=== PATIENT | female | born 1995 | race Caucasian/White ===

== ENCOUNTER 2018-01-21 21:19 | Emergency (ER) | payer SELFPAY ==
--- NOTE | 2018-01-21 21:32 | UC ---
Dizzy HPI HPI Summary: fainted this evening about 2 hours ago---episode was brief---patient felt it coming on with darkening of vision and loss of hearing, and sensation of SOB while sitting down ---she stood up then fainted, her SO believes it was for only a second or 2 and she had begun to arouse before he could grab her arm and cheek her pulse. Patient had eaten when this event happened[place] - History Of Current Complaint Chief Complaint: UCDizziness Stated Complaint: FAINTED Time Seen by Provider: 01/21/18 21:29 Hx Obtained From: Patient ?: No Onset/Duration: Sudden Onset, Lasting Minutes Timing: Constant Pain Intensity: 0 Pain Scale Used: 0-10 Numeric Character: Lightheaded Aggravating Factor(s): Nothing Alleviating Factor(s): Rest Associated Signs And Symptoms: Positive: SOB, Visual Changes - Allergies/Home Medications Allergies/Adverse Reactions: Allergies Allergy/AdvReac Type Severity Reaction Status Date / Time No Known Allergies Allergy Verified 01/21/18 22:59 Home Medications: Home Medications Levonorgestrel (Iud) [Mirena IUD] 1 insert VAGINAL ONCE 01/21/18 [History] PMH/Surg Hx/FS Hx/Imm Hx Previously Healthy: Yes - Family History Known Family History: Positive: Cardiac Disease, Diabetes - Social History Occupation: Employed Full-time, Student Lives: With Family Alcohol Use: None Substance Use Type: None Smoking Status (MU): Never Smoked Tobacco Review of Systems Constitutional: Negative Skin: Negative Eyes: Negative ENT: Negative Respiratory: Shortness Of Breath Cardiovascular: Negative Gastrointestinal: Negative Genitourinary: Negative Motor: Negative Neurovascular: Negative Musculoskeletal: Negative Neurological: Negative Psychological: Negative Is Patient Immunocompromised?: No All Other Systems Reviewed And Are Negative: Yes Physical Exam Triage Information Reviewed: Yes Appearance: Well-Appearing, No Pain Distress, Well-Nourished Vital Signs Reviewed: Yes Eye Exam: Normal Eyes: Positive: Conjunctiva Clear ENT Exam: Normal ENT: Positive: Normal ENT inspection, Hearing grossly normal, Pharynx normal, TMs normal, Uvula midline. Negative: Nasal congestion, Trismus, Muffled voice, Hoarse voice, Sinus tenderness Dental Exam: Normal Neck exam: Normal Neck: Positive: Supple, Nontender, No Lymphadenopathy Respiratory Exam: Normal Respiratory: Positive: Chest non-tender, Lungs clear, Normal breath sounds, No respiratory distress, No accessory muscle use Cardiovascular Exam: Normal Cardiovascular: Positive: RRR, No Murmur, Pulses Normal, Brisk Capillary Refill Abdominal Exam: Normal Abdomen Description: Positive: Nontender, No Organomegaly, Soft. Negative: CVA Tenderness (R), CVA Tenderness (L) Musculoskeletal Exam: Normal Musculoskeletal: Positive: Strength Intact, ROM Intact, No Edema Neurological Exam: Normal Neurological: Positive: Alert, Muscle Tone Normal Psychological Exam: Normal Skin Exam: Normal Diagnostics - EKG EKG Comments: 52 Cardiac Rate: Bradycardia Cardiac Rhythm: Sinus: Normal - arrythmia Ectopy: None ST Segment: Normal EKG Comparison: Other - none available Dizzy Course/Dx - Course [place] [facility] [place] - Differential Dx/Diagnosis Provider Diagnoses: syncope Discharge - Sign-Out/Discharge Documenting (check all that apply): Patient Departure - Discharge Plan Condition: Stable Disposition: HOME Patient Education Materials: Syncope (ED) Referrals: No Primary Care PhysNOPCP [Primary Care Provider] - Additional Instructions: I am discharging you from the urgent care to go to the emergency department at [facility] for evaluation of syncope - Billing Disposition and Condition Condition: STABLE Disposition: Home
[2018-01-21 22:05] VITALS: BP 108/68
== END 2018-01-21 22:15 | disposition home or self-care (01) ==
LOC: UCEAST 21:19
DX: R55 Syncope and collapse (principal); R06.02 Shortness of breath; H53.9 Unspecified visual disturbance; R00.1 Bradycardia, unspecified; Z82.49 Family history of ischemic heart disease and other diseases of the circulatory system; Z83.3 Family history of diabetes mellitus
CPT/HCPCS: 99202; G0463

== ENCOUNTER 2018-01-21 22:47 | Emergency (ER) | payer SELFPAY ==
--- NOTE | 2018-01-21 23:24 | ED ---
Syncope/Near Syncope - HPI Summary HPI Summary: A 22 y/o F presents to ED with c/o syncopal episode onset ACCESS CLINICIAN that lasted seconds. Pt was seated at dinner when the conversation turned to spinal injuries which made her feel queasy. She got up to go lay down and had LOC. Associated sx: nausea, tunnel vision, diminished hearing, difficulty breathing, and unsteady gait prior to syncopal episode. Denies CP, LE edema, head trauma. Per boyfriend, he caught pt and helped her to the ground so she didn't hit her head. Pt was saying she was OK after episode. Pt was [place] [facility] [place] to [place]. Per pt, EKG and BP tests at [facility] were normal. PMHx: syncopal episodes after giving blood, at chiropractor, and with extreme temperature changes. No daily medications. She states her father has episodes of tunnel vision, otherwise no family hx of syncopal episodes. [facility]: currently. - History Of Current Complaint Chief Complaint: EDSyncope Hx Obtained From: Patient, Family/Cylinder Batcher - boyfriend Onset/Duration: Sudden Onset, Lasting Minutes - seconds, Resolved Timing: Seconds Context: Witnessed, Loss Of Consciousness Activity At Onset: At Rest - eating dinner Associated Head Trauma: No Alleviating Factor(s): Spontaneous Resolution Associated Signs And Symptoms: Other - Pos: nausea, tunnel vision, diminished hearing, difficulty breathing, and unsteady gait. Neg: CP, LE edema, head trauma Frequency: Episodes x___ - 1 - Allergies/Home Medications Allergies/Adverse Reactions: Allergies Allergy/AdvReac Type Severity Reaction Status Date / Time No Known Allergies Allergy Verified 01/21/18 22:59 PMH/Surg Hx/FS Hx/Imm Hx Previously Healthy: No Respiratory History: Denies: Hx Chronic Obstructive Pulmonary Disease (COPD) Sensory History: Denies: Hx Deafness Opthamlomology History: Denies: Hx Legally Blind Neurological History: Reports: Other Neuro Impairments/Disorders - syncopal episodes - Surgical History Surgery Procedure, Year, and Place: WISDOM TEETH REMOVED Infectious Disease History: No Infectious Disease History: Denies: Traveled Outside the [place] in Last 30 Days - Family History Known Family History: Positive: Cardiac Disease, Diabetes, Other - father - episodes of tunnel vision; neg syncope episodes - Social History Occupation: Student Lives: With Family Alcohol Use: None Hx Substance Use: No Substance Use Type: Reports: None Hx Tobacco Use: No Smoking Status (MU): Never Smoked Tobacco Review of Systems Positive: Other - tunnel vision Positive: Other - diminished hearing Negative: Chest Pain Positive: Other - difficulty breathing Positive: Nausea Negative: Edema - LE, Other - head trauma Neurological: Other - unsteady gait Positive: Syncope All Other Systems Reviewed And Are Negative: Yes Physical Exam - Summary Physical Exam Summary: Appearance: Well-appearing, Well-nourished, lying in bed comfortably Skin: Warm, dry, no obvious rash Eyes: sclera anicteric, no conjunctival pallor ENT: mucous membranes moist, pharynx appears normal Neck: Supple, nontender Respiratory: Clear to auscultation, no signs of respiratory distress Cardiovascular: Normal S1, S2. No murmurs. Normal distal pulses in tibial and radial bilaterally. Abdomen: Soft, nontender, normal active bowel sounds present Musculoskeletal: Normal, Strength/ROM Intact Neurological: A&Ox3, awake and alert, mentation is normal, speech is fluent and appropriate Psychiatric: affect is normal, does not appear anxious or depressed Triage Information Reviewed: Yes Vital Signs On Initial Exam: Initial Vitals Temp Pulse Resp BP Pulse Ox 98.9 F 64 19 121/79 97 01/21/18 22:54 01/21/18 22:54 01/21/18 22:54 01/21/18 22:54 01/21/18 22:54 Vital Signs Reviewed: Yes Diagnostics - Vital Signs Vital Signs Temp Pulse Resp BP Pulse Ox 01/21/18 22:54 98.9 F 64 19 121/79 97 - Laboratory Lab Statement: Any lab studies that have been ordered have been reviewed, and results considered in the medical decision making process. - EKG 2354 Cardiac Rate: Bradycardia - 53 bpm EKG Rhythm: Sinus Bradycardia EKG Interpretation: RSR in V1 or V2, probably nml variant Re-Evaluation - Re-Evaluation 1 Re-Evaluation Time: 23:36 Change: Unchanged Comment: Discussing plans to do EKG as [facility]CE EKG is not in system. Pt is agreeable to this. Course/Dx - Diagnoses Provider Diagnoses: Vasovagal syncope Discharge - Sign-Out/Discharge Documenting (check all that apply): Patient Departure - Discharge Plan Condition: Good Disposition: HOME Patient Education Materials: Syncope (ED) Referrals: No Primary Care Phys,NOPCP [Primary Care Provider] - - Billing Disposition and Condition Condition: GOOD Disposition: Home
[2018-01-22 00:13] VITALS: BP 98/59
== END 2018-01-22 00:13 | disposition home or self-care (01) ==
LOC: ED 22:47
DX: R55 Syncope and collapse (principal); R00.1 Bradycardia, unspecified; R11.0 Nausea; H53.489 Generalized contraction of visual field, unspecified eye; H91.90 Unspecified hearing loss, unspecified ear; R06.00 Dyspnea, unspecified; R26.81 Unsteadiness on feet; Z82.49 Family history of ischemic heart disease and other diseases of the circulatory system; Z83.3 Family history of diabetes mellitus
CPT/HCPCS: 93005; 99282